=== PATIENT | female | born 1985 | race Caucasian/White ===

== ENCOUNTER 2024-11-20 10:13 | Outpatient (CLI) | payer BC, SELFPAY ==
--- NOTE | ~2024-11-20 | CT_ITS ---
CT abdomen pelvis wo con Ordering provider: Erma Anderson APRN History: 39 years Female with . Hematuria . Comparison: None. Technique: CT abdomen and pelvis without IV and without oral contrast. Automated exposure control and iterative reconstruction technique were employed. The dose-length product was 199.48 mGy-cm. Findings: VISUALIZED LOWER CHEST: Normal. UPPER ABDOMINAL ORGANS: Liver: Normal. Gallbladder: Status post cholecystectomy. Spleen: Normal. Stomach/duodenum: Normal. Pancreas: Normal. Adrenals: Normal. Kidneys: Multiple tiny stones seen in the right kidney upper mid and lower pole. Stone in the right l ower ureter measuring 3 mm with right mild hydronephrotic changes is noted. Stone is seen in the left kidney lower pole measuring 5 millimeters. PELVIC ORGANS: The bladder is normal. Status post hysterectomy. Left ovarian cyst is seen measuring 3.4 x 3.6 cm. Right ovarian cyst is see n measuring 2 x 2.6 cm. BOWEL AND MESENTERY: Colon: No evidence of diverticulitis.. Status post appendectomy. Small Bowel: Normal. No obstruction. Peritoneum/mesentery: No free air or free fluid. No mesenteric lymphadenopathy. RETROPERITONEUM: Normal aorta. No retroperitoneal lymphadenopathy. MUSCULOSKELETAL: Superficial soft tissues: The superficial soft tissues are normal. Bones: Normal spine. Postoperative changes in the upper lumbar area. IMPRESSION: 1. Stone in the right lower ureter with mild right hydronephrotic changes. 2. Bilateral kidney stones. 3. No evidence of appendicitis, diverticulitis or intestinal obstruction. Reviewed, dictated and finalized at location A.
== END 2024-11-20 10:14 | disposition home or self-care (01) ==
PROVIDERS: PCP Urology; Visit Provider Nurse Practitioner Family
DX: N13.2 Hydronephrosis with renal and ureteral calculous obstruction (principal); N13.30 Unspecified hydronephrosis
CPT/HCPCS: 74176